=== PATIENT | female | born 1995 | race Caucasian/White ===

== ENCOUNTER 2018-09-28 23:26 | Emergency (ER) | payer BC ==
[2018-09-28] MEDS ORDERED: morphine 2 MG INJ IV (23:44)
[2018-09-28 23:53] LABS: URINE BLOOD (Dip) POC Trace-intact (NEGATIVE); URINE GLUCOSE (Dip) POC Negative (NEGATIVE); URINE KETONES (Dip) POC Trace (NEGATIVE); URINE LEUKOCYTE EST (Dip) POC Negative (NEGATIVE); URINE NITRITE (Dip) POC Negative (NEGATIVE); URINE TOTAL PROTEIN POC Negative (NEGATIVE)
[2018-09-29 00:01] LABS: ADD UMIC NO; UR ASCORBIC ACID NEGATIVE (NEGATIVE); UR BILIRUBIN (Dip) NEGATIVE (NEGATIVE); UR BLOOD (Dip) NEGATIVE (NEGATIVE); UR CLARITY CLEAR (CLEAR); UR COLOR YELLOW (YELLOW); UR GLUCOSE (Dip) NEGATIVE (NEGATIVE); UR KETONES (Dip) NEGATIVE (NEGATIVE); UR LEUKOCYTE ESTERASE (Dip) NEGATIVE Leu/ul (NEGATIVE); UR NITRITE (Dip) NEGATIVE (NEGATIVE); UR SPECIFIC GRAVITY (Dip) 1.025 (1.003-1.030); UR TOTAL PROTEIN (Dip) NEGATIVE (NEGATIVE); UR UROBILINOGEN (Dip) 2+ mg/dL (NEGATIVE)
[2018-09-29 00:02] LABS: ADD MAN DIFF? NO
[2018-09-29] MEDS: ONDANSETRON 4 MG INJ IV (00:03)
[2018-09-29] MEDS: SOD CHLORIDE 0.9% 1,000 ML IV (00:03)
[2018-09-29] MEDS: FAMOTIDINE 20 MG INJ IV (00:03)
[2018-09-29 00:04] LABS: WHITE BLOOD COUNT 8.5 10^3/ul (4.8-10.8)
[2018-09-29 00:04] LABS: BASOPHILS % 0.1 % (0.0-2.0); EOSINOPHILS # 0.1 10^3/ul (0.0-0.5); EOSINOPHILS % 1.4 % (0.0-7.0); HEMATOCRIT 34.4 % (37.0-47.0); HEMOGLOBIN 10.2 g/dl (12.0-16.0); LYMPHOCYTES # 2.3 10^3/ul (0.8-2.9); LYMPHOCYTES % 27.5 % (15.0-51.0); MEAN CORPUSCULAR HEMOGLOBIN 22.4 pg (29.0-33.0); MEAN CORPUSCULAR HGB CONC 29.7 g/dl (32.0-37.0); MEAN CORPUSCULAR VOLUME 75.4 fl (82.0-101.0); MEAN PLATELET VOLUME 9.8 fl (7.4-10.4); MONOCYTE # 0.7 10^3/ul (0.3-0.9); MONOCYTES % 8.3 % (0.0-11.0); NEUTROPHIL # 5.3 10^3/ul (1.6-7.5); NEUTROPHILS % 62.5 % (39.0-77.0); PLATELET COUNT 409 10^3/UL (140-415); RED BLOOD COUNT 4.56 10^6/ul (4.20-5.40); RED CELL DISTRIBUTION WIDTH 17.8 % (11.5-14.5)
[2018-09-29 00:25] LABS: ALANINE AMINOTRANSFERASE 101 IU/L (13-69); ALBUMIN/GLOBULIN RATIO 1.21; ALKALINE PHOSPHATASE 107 IU/L (42-121); ANION GAP 11 (5-13); ASPARTATE AMINO TRANSFERASE 47 IU/L (15-46); BILIRUBIN,INDIRECT 0.1 mg/dl (0-1.1); BILIRUBIN,TOTAL 0.1 mg/dl (0.2-1.3); BLOOD UREA NITROGEN 11 mg/dl (7-20); CALCIUM 9.3 mg/dl (8.4-10.2); CARBON DIOXIDE 24 mmol/L (21-31); CHLORIDE 104 mmol/L (97-110); CREATININE 0.47 mg/dl (0.44-1.00); Estimated GFR > 60 mL/min (>60); GLUCOSE 100 mg/dl (70-220); LIPASE 42 U/L (23-300); POTASSIUM 3.6 mmol/L (3.5-5.1); SODIUM 139 mmol/L (135-144); TOTAL PROTEIN 7.3 g/dl (6.1-8.1)
== END 2018-09-29 01:43 | disposition home or self-care (01) ==
LOC: FTE 23:26
DX: R10.13 Epigastric pain (principal); R10.2 Pelvic and perineal pain; F17.210 Nicotine dependence, cigarettes, uncomplicated; Z33.1 Pregnant state, incidental
CPT/HCPCS: 36415; 76705; 76801; 76817; 80053; 81003; 81025; 83690; 84702; 85025; 96361; 96374; 96375; 99285-25

== ENCOUNTER 2018-10-01 18:43 | Emergency (ER) | payer BC | END 2018-10-01 21:23 | disposition home or self-care (01) | LOC: FTE 18:43 | DX: Z32.01 Encounter for pregnancy test, result positive (principal); R10.2 Pelvic and perineal pain; Z87.891 Personal history of nicotine dependence | CPT/HCPCS: 84702; 99282 ==

== ENCOUNTER 2019-03-10 23:03 | Outpatient (CLI) | payer BC ==
[2019-03-11 00:49] LABS: ADD MAN DIFF? NO
[2019-03-11 00:52] LABS: WHITE BLOOD COUNT 12.2 10^3/ul (4.8-10.8)
[2019-03-11 00:52] LABS: ABNORMAL IP MESSAGE 1; BASOPHILS % 0.2 % (0.0-2.0); EOSINOPHILS # 0.1 10^3/ul (0.0-0.5); EOSINOPHILS % 0.7 % (0.0-7.0); HEMATOCRIT 24.5 % (37.0-47.0); LYMPHOCYTES # 2.6 10^3/ul (0.8-2.9); MEAN CORPUSCULAR HEMOGLOBIN 22.7 pg (29.0-33.0); MEAN CORPUSCULAR HGB CONC 28.6 g/dl (32.0-37.0); MEAN CORPUSCULAR VOLUME 79.3 fl (82.0-101.0); MEAN PLATELET VOLUME 10.4 fl (7.4-10.4); MONOCYTE # 0.9 10^3/ul (0.3-0.9); MONOCYTES % 6.9 % (0.0-11.0); NEUTROPHIL # 8.6 10^3/ul (1.6-7.5); NEUTROPHILS % 70.3 % (39.0-77.0); NUCLEATED RED BLOOD CELLS% 0.2 /100WBC (0.0-0.0); PLATELET COUNT 325 10^3/UL (140-415); RED BLOOD COUNT 3.09 10^6/ul (4.20-5.40); RED CELL DISTRIBUTION WIDTH 17.1 % (11.5-14.5)
[2019-03-11 01:04] LABS: POSITIVE DIFF @See below
[2019-03-11 01:08] LABS: ADD UMIC YES; UR ASCORBIC ACID NEGATIVE (NEGATIVE); UR BACTERIA FEW /HPF (NONE SEEN); UR BILIRUBIN (Dip) NEGATIVE (NEGATIVE); UR BLOOD (Dip) NEGATIVE (NEGATIVE); UR CLARITY CLOUDY (CLEAR); UR COLOR YELLOW (YELLOW); UR GLUCOSE (Dip) NEGATIVE (NEGATIVE); UR KETONES (Dip) NEGATIVE (NEGATIVE); UR LEUKOCYTE ESTERASE (Dip) NEGATIVE Leu/ul (NEGATIVE); UR MUCUS FEW /HPF (NONE SEEN); UR NITRITE (Dip) NEGATIVE (NEGATIVE); UR RBC 3 /HPF (0-5); UR SPECIFIC GRAVITY (Dip) 1.029 (1.003-1.030); UR SQUAMOUS EPITHELIAL CELL MODERATE /HPF (FEW); UR TOTAL PROTEIN (Dip) 1+ mg/dl (NEGATIVE); UR UROBILINOGEN (Dip) 2+ mg/dL (NEGATIVE); UR WBC 15 /HPF (0-5)
== END 2019-03-11 01:54 | disposition home or self-care (01) ==
LOC: OBT 23:03 → L-D 23:03
DX: O36.8120 Decreased fetal movements, second trimester, not applicable or unspecified (principal); O99.012 Anemia complicating pregnancy, second trimester; Z3A.26 26 weeks gestation of pregnancy
CPT/HCPCS: 76817; 76818; 81001; 85025; 87086

== ENCOUNTER 2019-05-29 10:28 | Inpatient (IN) | payer BC ==
[2019-05-29] MEDS ORDERED: BUTORPHANOL 2 MG INJ IV (11:30)
[2019-05-29] MEDS ORDERED: LIDOCAINE 1% (MPF) 30 ML INJ INJ (11:30)
[2019-05-29] MEDS ORDERED: IBUPROFEN 600 MG TAB PO (11:30)
[2019-05-29] MEDS ORDERED: OXYTOCIN 30 UNITS/LR 500 ML IV (11:30)
[2019-05-29] MEDS ORDERED: AMPICILLIN 2 GM/NS (PMX) 100 ML IV (11:30)
[2019-05-29 11:54] LABS: ADD MAN DIFF? NO
[2019-05-29 11:55] LABS: WHITE BLOOD COUNT 10.2 10^3/ul (4.8-10.8)
[2019-05-29 11:55] LABS: ABNORMAL IP MESSAGE 1; BASOPHILS % 0.4 % (0.0-2.0); EOSINOPHILS % 0.2 % (0.0-7.0); HEMATOCRIT 24.4 % (37.0-47.0); LYMPHOCYTES # 1.7 10^3/ul (0.8-2.9); MEAN CORPUSCULAR HEMOGLOBIN 19.2 pg (29.0-33.0); MEAN CORPUSCULAR HGB CONC 26.6 g/dl (32.0-37.0); MEAN CORPUSCULAR VOLUME 72.2 fl (82.0-101.0); MEAN PLATELET VOLUME 10.9 fl (7.4-10.4); MONOCYTE # 0.5 10^3/ul (0.3-0.9); MONOCYTES % 5.3 % (0.0-11.0); NEUTROPHIL # 7.8 10^3/ul (1.6-7.5); NEUTROPHILS % 76.5 % (39.0-77.0); NUCLEATED RED BLOOD CELLS% 0.3 /100WBC (0.0-0.0); PLATELET COUNT 351 10^3/UL (140-415); RED BLOOD COUNT 3.38 10^6/ul (4.20-5.40); RED CELL DISTRIBUTION WIDTH 19.9 % (11.5-14.5)
[2019-05-29 11:56] LABS: POSITIVE DIFF @See below
[2019-05-29 11:57] LABS: HEMOGLOBIN 6.5 g/dl (12.0-16.0); PATH REVIEW? YES
[2019-05-29] MEDS: LACTATED RINGER'S 1,000 ML IV (12:11)
[2019-05-29 12:18] LABS: INR 0.88; PT RATIO 0.9
[2019-05-29 12:19] LABS: PARTIAL THROMBOPLASTIN TIME 30.1 Sec (23.0-35.0)
[2019-05-29] MEDS: OXYTOCIN 30 UNITS/LR 500 ML IV ×3 (12:40→20:40)
[2019-05-29] MEDS ORDERED: DIPHENHYDRAMINE 50 MG INJ IV (14:30)
[2019-05-29] MEDS ORDERED: NALOXONE (0.4 MG/ML) INJ IV (14:30)
[2019-05-29] MEDS ORDERED: FENTAnyl 2MCG/ML-ROPIV 0.2% 100 ML BAG EPI (14:30)
[2019-05-29] MEDS ORDERED: ONDANSETRON 4 MG INJ IV (14:30)
[2019-05-29] MEDS ORDERED: AMPICILLIN 1 GM/NS (PMX) 50 ML IV (15:30)
[2019-05-29 16:16] LABS: RAPID PLASMA REAGIN NONREACTIVE (NR)
[2019-05-29] MEDS: METHYLERGONOVINE 0.2 MG INJ IM (20:27)
[2019-05-29] MEDS: CARBOPROST 250 MCG INJ IM (20:27)
[2019-05-29] MEDS ORDERED: CEFAZOLIN 2 GM/50 ML (PMX) 50 ML IVPB (20:47)
[2019-05-29] MEDS ORDERED: CLINDAMYCIN 900 MG (PMX) 50 ML IVPB (20:51)
[2019-05-29] MEDS: CLINDAMYCIN 900 MG (PMX) 50 ML IVPB (21:15)
[2019-05-29] MEDS: MISOPROSTOL 200 MCG TAB PR (21:17)
[2019-05-29] MEDS: DIPHENOXYLATE/ATROPINE TAB PO (21:24)
[2019-05-29 21:35] LABS: WHITE BLOOD COUNT 25.8 10^3/ul (4.8-10.8)
[2019-05-29 21:35] LABS: ABNORMAL IP MESSAGE 1; HEMATOCRIT 24.6 % (37.0-47.0); MEAN CORPUSCULAR HEMOGLOBIN 19.3 pg (29.0-33.0); MEAN CORPUSCULAR HGB CONC 26.4 g/dl (32.0-37.0); MEAN CORPUSCULAR VOLUME 73.2 fl (82.0-101.0); MEAN PLATELET VOLUME 10.8 fl (7.4-10.4); NUCLEATED RED BLOOD CELLS% 0.1 /100WBC (0.0-0.0); PLATELET COUNT 455 10^3/UL (140-415); RED BLOOD COUNT 3.36 10^6/ul (4.20-5.40); RED CELL DISTRIBUTION WIDTH 19.9 % (11.5-14.5)
[2019-05-29 21:57] LABS: ADD MAN DIFF? YES; HEMOGLOBIN 6.5 g/dl (12.0-16.0); POSITIVE DIFF @See below
[2019-05-29 22:47] LABS: ANISOCYTOSIS 3+ (0-0); BAND NEUTROPHILS % (M) 8 % (0-4); ERYTHROBLAST% (NRBC) (M) 1 % (0-0); GIANT THROMBO% (M) 1 % (0-0); HYPOCHROMASIA 1+ (0-0); LYMPHOCYTES % (M) 4 % (15-51); MICROCYTOSIS 3+ (0-0); MONOCYTES % (M) 4 % (0-11); PLATELET ESTIMATE INCREASED; POIKILOCYTOSIS 1+ (0-0); POLYCHROMASIA 3+ (0-0); SEG NEUT #M 22.2 10^3/ul (1.6-7.5); SEGMENTED NEUTROPHILS (M) % 84 % (39-77)
[2019-05-30] MEDS ORDERED: NACL 0.9% 3 ML SYG IV
[2019-05-30] MEDS ORDERED: ONDANSETRON 4 MG INJ IV
[2019-05-30] MEDS ORDERED: OXYTOCIN 30 UNITS/LR 500 ML IV
[2019-05-30] MEDS ORDERED: METHYLERGONOVINE 0.2 MG INJ IM
[2019-05-30] MEDS ORDERED: OXYCODONE/ASPIRIN (4.88/325) TAB PO ×2
[2019-05-30] MEDS ORDERED: CARBOPROST 250 MCG INJ IM
[2019-05-30] MEDS ORDERED: MISOPROSTOL 200 MCG TAB PR
[2019-05-30] MEDS ORDERED: DIBUCAINE 1% 30 GM OINT TOP
[2019-05-30 01:00] LABS: LACTATE DEHYDROGENASE 365 IU/L (313-618)
[2019-05-30] MEDS: BENZOCAINE 20% 56 ML SPRAY TOP (01:15)
[2019-05-30] MEDS: LANOLIN HPA 1 PKT TOP (01:15)
[2019-05-30] MEDS: ACETAMINOPHEN 325 MG TAB PO (01:15)
[2019-05-30] MEDS: WITCH HAZEL/GLYCERIN PAD PR (01:15)
[2019-05-30] MEDS: OXYTOCIN 30 UNITS/LR 500 ML IV (01:17)
[2019-05-30] MEDS: IBUPROFEN 600 MG TAB PO ×5 (05:51→23:43)
[2019-05-30 08:29] LABS: ADD MAN DIFF? NO
[2019-05-30 08:37] LABS: WHITE BLOOD COUNT 18.9 10^3/ul (4.8-10.8)
[2019-05-30 08:37] LABS: ABNORMAL IP MESSAGE 1; BASOPHIL # 0.1 10^3/ul (0.0-0.1); BASOPHILS % 0.3 % (0.0-2.0); HEMATOCRIT 15.6 % (37.0-47.0); LYMPHOCYTES # 2.7 10^3/ul (0.8-2.9); LYMPHOCYTES % 14.2 % (15.0-51.0); MEAN CORPUSCULAR HEMOGLOBIN 19.3 pg (29.0-33.0); MEAN CORPUSCULAR HGB CONC 26.9 g/dl (32.0-37.0); MEAN CORPUSCULAR VOLUME 71.6 fl (82.0-101.0); MEAN PLATELET VOLUME 11.1 fl (7.4-10.4); MONOCYTES % 10.5 % (0.0-11.0); NEUTROPHIL # 14.1 10^3/ul (1.6-7.5); NEUTROPHILS % 74.2 % (39.0-77.0); NUCLEATED RED BLOOD CELLS # 0.1 10^3/ul (0.0-0.0); NUCLEATED RED BLOOD CELLS% 0.4 /100WBC (0.0-0.0); PLATELET COUNT 288 10^3/UL (140-415); RED BLOOD COUNT 2.18 10^6/ul (4.20-5.40); RED CELL DISTRIBUTION WIDTH 19.8 % (11.5-14.5)
[2019-05-30 08:42] LABS: HEMOGLOBIN 4.2 g/dl (12.0-16.0); POSITIVE DIFF @See below
[2019-05-30] MEDS: MAGNESIUM HYDROXIDE 30ML CUP PO ×2 (09:17→21:00)
[2019-05-30] MEDS: SENNA/DOCUSATE NA (8.6MG/50MG) TAB PO ×2 (09:17→21:00)
[2019-05-30] MEDS: CLINDAMYCIN 900 MG (PMX) 50 ML IVPB ×2 (09:18→18:08)
[2019-05-30] MEDS: DIPHENHYDRAMINE 25 MG CAP PO (11:34)
[2019-05-30] MEDS: ACETAMINOPHEN 500 MG TAB PO (11:35)
[2019-05-30 19:50] LABS: IMMEDIATE SPIN CROSSMATCH 1 3
[2019-05-31] MEDS: CLINDAMYCIN 900 MG (PMX) 50 ML IVPB ×3 (01:24→17:51)
[2019-05-31] MEDS: IBUPROFEN 600 MG TAB PO ×4 (06:12→23:26)
[2019-05-31 08:04] LABS: ADD MAN DIFF? NO
[2019-05-31 08:11] LABS: WHITE BLOOD COUNT 14.6 10^3/ul (4.8-10.8)
[2019-05-31 08:11] LABS: BASOPHIL # 0.1 10^3/ul (0.0-0.1); BASOPHILS % 0.3 % (0.0-2.0); EOSINOPHILS # 0.1 10^3/ul (0.0-0.5); EOSINOPHILS % 0.5 % (0.0-7.0); HEMATOCRIT 24.9 % (37.0-47.0); HEMOGLOBIN 7.4 g/dl (12.0-16.0); LYMPHOCYTES # 4.1 10^3/ul (0.8-2.9); LYMPHOCYTES % 28.3 % (15.0-51.0); MEAN CORPUSCULAR HGB CONC 29.7 g/dl (32.0-37.0); MEAN CORPUSCULAR VOLUME 80.8 fl (82.0-101.0); MEAN PLATELET VOLUME 10.9 fl (7.4-10.4); NEUTROPHIL # 9.2 10^3/ul (1.6-7.5); NEUTROPHILS % 63.3 % (39.0-77.0); NUCLEATED RED BLOOD CELLS% 0.1 /100WBC (0.0-0.0); PLATELET COUNT 267 10^3/UL (140-415); RED BLOOD COUNT 3.08 10^6/ul (4.20-5.40); RED CELL DISTRIBUTION WIDTH 21.2 % (11.5-14.5)
[2019-05-31] MEDS: DIPHTH/TET/ACEL PERTUSS (ADULT) 0.5 ML VIAL IM* (09:00)
[2019-05-31 09:15] LABS: HEPATITIS B SURFACE ANTIGEN NEGATIVE (NEGATIVE)
[2019-05-31] MEDS: DIPHENHYDRAMINE 50 MG INJ IV (09:24)
[2019-05-31] MEDS: MAGNESIUM HYDROXIDE 30ML CUP PO ×2 (09:24→20:56)
[2019-05-31] MEDS: SENNA/DOCUSATE NA (8.6MG/50MG) TAB PO ×2 (09:24→20:56)
[2019-06-01] MEDS: IBUPROFEN 600 MG TAB PO ×2 (05:22→12:27)
[2019-06-01] MEDS: MAGNESIUM HYDROXIDE 30ML CUP PO (08:40)
[2019-06-01] MEDS: SENNA/DOCUSATE NA (8.6MG/50MG) TAB PO (08:40)
== END 2019-06-01 17:06 | disposition home or self-care (01) | DRG 768 ==
LOC: OBT 10:28 → PP1 05-30 00:25 → L-D 10:29 → OBT 11:09 → L-D 11:04
PROVIDERS: Obstetrics & Gynecology
PROC: 10E0XZZ Delivery of Products of Conception, External Approach (ICD-10-PCS; principal; 2019-05-30)
PROC: 0W3R7ZZ Control Bleeding in Genitourinary Tract, Via Natural or Artificial Opening (ICD-10-PCS; 2019-05-30)
PROC: 0KQM0ZZ Repair Perineum Muscle, Open Approach (ICD-10-PCS; 2019-05-30)
PROC: 30233N1 Transfusion of Nonautologous Red Blood Cells into Peripheral Vein, Percutaneous Approach (ICD-10-PCS; 2019-05-30)
DX: O99.214 Obesity complicating childbirth (principal); D62 Acute posthemorrhagic anemia; E66.9 Obesity, unspecified; O99.02 Anemia complicating childbirth; D64.9 Anemia, unspecified; O70.1 Second degree perineal laceration during delivery; O72.1 Other immediate postpartum hemorrhage; O69.81X0 Labor and delivery complicated by cord around neck, without compression, not applicable or unspecified; Z37.0 Single live birth; Z3A.38 38 weeks gestation of pregnancy
CPT/HCPCS: 36430; 62322; 76815; 82962; 83615; 85025; 85610; 85730; 86592; 86850; 86900; 86901; 86920; 87340; 94760; 99464